=== PATIENT | male | born 1975 | race Caucasian/White ===

== ENCOUNTER 2025-06-03 11:24 | Emergency (ER) | payer MEDICAID ==
[~2025-06-03] VITALS: Ht 182.9 cm; Wt 91.7 kg
[2025-06-03 11:39] VITALS: PULSE 55; TEMP 97.7; O2SAT 97
[2025-06-03] MEDS: triamcinolone acetonide 40mg/ml inj IM ONE (12:03)
--- NOTE | 2025-06-03 12:19 | Physician Documentation ---
History of Present Illness ~ Chief Complaint: Rash Stated Complaint: POISON OAK Time Seen by MD: 11:45 HPI Patient is a very pleasant 49-year-old male that presents to the emergency department for evaluation of poison oak exposure. Patient reports he was chopping wood over the last couple of days and since that time has developed a rash consistent with poison oak on his bilateral upper extremities. Patient has tried calamine lotion but no improvement in the rash. Patient reports he has previously had poison oak in the past received Kenalog injections. Patient denies any other symptoms at this time. Medication Reconciliation Allergies: Coded Allergies: No Known Allergies (Unverified , 06/03/25) Review of Systems ROS As stated above in the HPI, otherwise all systems are reviewed and negative. Physical Exam Vital Signs: Temperature: 97.7, Source: Oral, Heart Rate: 55, Respiratory Rate: 17, Pulse Oximetry: 97, Weight: 91.700 Physical Exam VITALS: Reviewed and as above. GENERAL: Alert, no apparent distress. HEENT: Normocephalic, atraumatic, PERRL, EOMI, dry mucosa, no erythema RESPIRATORY: Lungs clear, normal breath sounds, no respiratory distress. CHEST: No accessory muscle use, no retractions CV: Regular rate, rhythm, no edema, no murmur, No: JVD GI: Soft, non-tender, bowels sounds present, no rebound, guarding, or rigidity BACK: No CVA tenderness, or swelling MUSCULOSKELETAL No deformities, no edema SKIN: Warm and dry, consistent with poison oak to the bilateral upper extremities noted on examination. NEURO: Oriented x4, No motor or sensory deficit PSYCH: Normal mood and affect, no agitation Progress Results/Orders Results/Orders Completed Orders - ROLANDO VARMA Triamcinolone Acet 40mg/Ml Inj (Kenalog- (06/03/25 11:45) Medications Received in ER Medications (Trade) Dose Ordered Sig/Eladia Route PRN Reason Start Time Stop Time Status Last Admin Dose Admin (Kenalog-40 inj) 40 mg ONCE ONCE IM 06/03/25 11:45 06/03/25 11:46 DC 06/03/25 12:03 40 MG Vital Signs 06/03/25 11:39 Temp 97.7 Pulse 55 Resp 17 Pulse Ox 97 Medical Decision Making Additional information obtaine: other Findings Your Diagnosis: Poison oak contact dermatitis (allergic skin rash from poison oa k exposure) Treatment Received Today: You received a 40 mg Kenalog (triamcinolone) injection in the emergency department to help reduce inflammation and itching from your poison oak rash. What to Expect: Your rash may take up to 3 weeks to fully resolve The steroid injection should help reduce redness, swelling, and itching over the next several days You may continue to see some improvement over the coming week Home Care Instructions: For Itching Relief: Apply cool, wet compresses to affected areas as needed Take cool oatmeal baths for comfort You may use [id number] oral antihistamines (like Benadryl) at bedtime to help with sleep, though these may not significantly reduce itching Avoid scratching, which can lead to skin infection Skin Care: Keep the affected areas clean and dry Avoid further contact with poison oak, poison cyndee, or poison sumac plants Wash any clothing, tools, or equipment that may have contacted the plant oils, as the oils can remain active and cause re-exposure Remember that all parts of the poison oak plant can cause dermatitis, even in winter Prevention of Future Exposure: If you contact poison oak again, wash the exposed skin with soap and water immediately - this can remove up to 100% of the plant oils if done right away, but effectiveness drops rapidly (50% at 10 minutes, 25% at 15 minutes) [facility] soap and water can be effective for washing off plant oils Wear protective clothing and gloves when working outdoors in areas where poison oak may be present Follow-Up Care: Schedule an appointment with your primary care provider within 1-2 weeks to ensure proper healing Your primary care provider can assess whether additional treatment is needed When to Seek Immediate Medical Attention: Return to the emergency department or contact your doctor right away if you develop: Fever or signs of skin infection (increasing redness, warmth, pus, or red streaks) Rash spreading to your face, eyes, mouth, or genital area Difficulty breathing or swallowing Severe swelling Rash covering a large portion of your body Symptoms that worsen despite treatment New or concerning symptoms Important Reminders: The rash itself is not contagious and cannot spread to other people The fluid from blisters does not contain the plant oil and will not spread the rash Complete avoidance of poison oak plants is the most effective prevention strategy Questions? Differential Dx:Considerations: Include: Abscess, AIDS/HIV, Anthrax (cutaneous), Atopic dermatitis, Candidiasis, Contact dermatitis, Drug reaction, Erythema multiforme, Erysipelas, Gangrene, Herpes zoster, Herpes simplex, Hidrad enitis suppurativa, Impetigo, Intertrigo, Lymes disease, Molluscum contagiosum, Osteomyelitis, Pediculosis, Pityriasis rosea, Psoriaisis, RMSF, Rosacea, Scabies, Scarlet fever, Tinea, Urticaria, Varicella, Viral exanthema, Other Departure Disposition: 01 HOME / SELF CARE / HOMELESS Impression: Primary Impression: Allergic contact dermatitis Additional Impression: Poison oak Condition: Stable Discharge Instructions: Contact Dermatitis, Poison [place] Dermatitis, [id number] Additional Instructions: Your Diagnosis: Poison oak contact dermatitis (allergic skin rash from poison oak exposure) Treatment Received Today: You received a 40 mg Kenalog (triamcinolone) injection to help reduce inflammation and itching from your poison oak rash. What to Expect: Your rash may take up to 3 weeks to fully resolve The steroid injection should help reduce redness, swelling, and itching over the next several days You may continue to see improvement over the coming week Home Care Instructions: For Itching Relief: Apply cool, wet compresses to affected areas as needed Take cool oatmeal baths for comfort You may use [id number] oral antihistamines (like Benadryl) at bedtime to help with sleep, though these may not significantly reduce itching Avoid scratching, which can lead to skin infection Skin Care: Keep the affected areas clean and dry Avoid further contact with poison cyndee, poison oak, or poison sumac plants Wash any clothing, tools, or equipment that may have contacted the plant oils, as the oils can remain active and cause re-exposure Prevention of Future Exposure: If you contact poison oak again, wash the exposed skin with soap and water immediately - this can remove up to 100% of the plant oils if done right away, but effectiveness drops rapidly (50% at 10 minutes, 25% at 15 minutes) [facility] soap and water can be effective for washing off plant oils Wear protective clothing and gloves when working outdoors in areas where poison oak may be present Important Safety Information About Your Steroid Injection: Seek medical advice immediately if you develop fever or other signs of infection Avoid exposure to chickenpox or measles while the steroid is in your system; if exposed, seek medical advice without delay Inform any healthcare providers you see that you recently received a corticosteroid injection Follow-Up Care: Schedule an appointment with your primary care provider within 1-2 weeks to ensure proper healing Your primary care provider can assess whether additional treatment is needed When to Seek Immediate Medical Attention: Return to the emergency department or contact your doctor right away if you develop: Fever or signs of skin infection (increasing redness, warmth, pus, or red streaks) Rash spreading to your face, eyes, mouth, or genital area Difficulty breathing or swallowing Severe swelling Rash covering a large portion of your body Symptoms that worsen despite treatment New or concerning symptoms Important Reminders: The rash itself is not contagious and cannot spread to other people The fluid from blisters does not contain the plant oil and will not spread the rash Complete avoidance of poison oak plants is the most effective prevention strategy Referrals: NO PRIMARY CARE PROVIDER (PCP) Education Educated: Patient Educated regarding: diagnosis, treatment, need for follow up Signature Scribe Signature: A Attestation: Scribed for Rolando Varma by NOLA Tomlin . 06/03/25 12:19 ROLANDO VARMA Jun 03, 2025 12:19
[2025-06-03 12:20] VITALS: RESP 16
== END 2025-06-03 12:24 | disposition home or self-care (01) ==
LOC: ER 11:25
DX: L23.7 Allergic contact dermatitis due to plants, except food (principal)
CPT/HCPCS: 96372; 99283; J3301; A6258; A6449